=== PATIENT | male | born 1955 | race Caucasian/White ===

== ENCOUNTER 2017-07-17 09:28 | Outpatient (CLI) | payer BC ==
--- NOTE | 2017-07-17 11:10 | RAD ---
EXAM: THREE VIEWS LUMBAR SPINE: COMPARISON: 06/27/16. HISTORY: Lumbar fusion. FINDINGS: There are 5 lumbar-type vertebral bodies. Lumbar spine vertebral body height is maintained. No frac ture. Approximately 2 cm of anterolisthesis of L5 upon S1 in the neutral position. Upon flexion, t here is 2.3 cm anterolisthesis of L5 upon S1. Upon extension, there is 1.8 cm anterolisthesis of L5 upon S1. There are bilateral transpedicular screws at L5 and S1 without perihardware lucency. IMPRESSION: Grade II anterolisthesis of L5 upon S1 upon the neutral position with translational motion upon exten marilin and flexion. POS: [facility]
--- NOTE | 2017-07-17 12:18 | CT ---
CT LUMBAR SPINE WITHOUT CONTRAST: Date: 07/17/17 HISTORY: Lumbar radiculopathy. Low back pain x1 year with a popping sensation. Numbing sensation, mainly on th e left. Previous lumbar surgery. COMPARISON: None. TECHNIQUE: Noncontrast lumbar spine CT is performed in the axial plane. Reformatted images are submitted for int erpretation. FINDINGS: Visualized solid organs are unremarkable. There appears to be fatty infiltration of the visualized he patic parenchyma. No retroperitoneal mass, lymphadenopathy, or hematoma. Symmetric attenuation of the psoas muscles. Five lumbar-type vertebral bodies. Lumbar spine vertebral body height is maintained. No lumbar spine fracture. There are bilateral transpedicular screws at L5 and S1, without perihardware lucency. There is 1.2 cm anterolisthesis of L5 upon S1. There are bilateral pars defects at L5. There is preservation of the transverse processes throughout the lumbar spine. Vacuum disc phenomenon at L3-L4 and L4-L5. T11-T12: No significant posterior disc abnormality. No significant central canal stenosis. Mild facet hypertro phy. Neural foramina patent bilaterally. T12-L1: No posterior disc abnormality. No significant central canal stenosis. Mild bilateral foraminal narrow ing. L1-L2: No significant posterior disc abnormality. No significant central canal stenosis. Mild bilateral fora myesha narrowing. L2-L3: No significant posterior disc abnormality. There is facet hypertrophy. No significant central canal s tenosis. Neural foramina are patent bilaterally. L3-L4: Generalized disc bulge with a central/left subarticular component. At least mild to moderate central canal stenosis. Moderate right and mild left foraminal narrowing. L4-L5: Limited evaluation due to beam attenuation artifact. No high grade central canal stenosis. Mild to mo derate bilateral foraminal narrowing. L5-S1: Limited evaluation due to beam attenuation artifact. No high grade central canal stenosis. Moderate b ilateral foraminal narrowing. IMPRESSION: 1. Grade II anterolisthesis of L5 upon S1. There are associated bilateral pars defects. There is lum bar fusion hardware at L5-S1, without perihardware lucency. 2. No high grade central canal stenosis or high grade foraminal narrowing. Evaluation is limited by technique. Consider myelogram if clinically warranted. POS: [facility]
== END 2017-07-17 09:29 | disposition home or self-care (01) ==
LOC: TBSIIMAG 09:28
PROVIDERS: ATTEND Neurological Surgery
DX: M54.16 Radiculopathy, lumbar region (principal); M43.17 Spondylolisthesis, lumbosacral region; Z98.1 Arthrodesis status
CPT/HCPCS: 72100; 72131

== ENCOUNTER 2018-01-15 10:01 | Outpatient (CLI) | payer BC | END 2018-01-15 10:02 | disposition home or self-care (01) | LOC: CTENTCT 10:01 | PROVIDERS: ATTEND Otolaryngology Plastic Surgery within the Head & Neck | DX: J34.2 Deviated nasal septum (principal) | CPT/HCPCS: 70486 ==

== ENCOUNTER 2019-02-15 09:26 | Outpatient (CLI) | payer BC ==
[2019-02-15 12:44] LABS: #Basophils 0.1 thou/uL (0.0-0.2); #Eosinphils 0.4 thou/uL (0.0-0.7); #Lymphocytes 1.6 thou/uL (1.20-3.40); #Monocytes 0.5 thou/uL (0.11-0.59); #Neutrophils 2.5 thou/uL (1.40-6.50); %Basophils 1.1 % (0.0-1.0); %Eosinophils 7.6 % (0.0-10.0); %Lymphocytes 31.4 % (21.0-51.0); %Monocytes 10.1 % (0.0-10.0); %Neutrophils 49.9 % (42.0-75.0); Hemoglobin 15.4 g/dL (14.0-18.0); Mean Corpuscular HGB CONC 34.9 g/dL (32.0-36.0); Mean Corpuscular Hemoglobin 32.3 pg (27.0-31.0); Mean Corpuscular Volume 92.7 fL (78.0-98.0); Mean Platelet Volume 8.3 fL (7.4-10.4); Platelet Count 162 thou/uL (130-400); RBC Distribution Width 11.3 % (11.5-14.5); Red Blood Cell (RBC) Count 4.76 mill/uL (4.70-6.10)
[2019-02-15 13:02] LABS: Anion Gap 14 mmol/L (10-20); BUN (Urea Nitrogen) 24 mg/dL (8.4-25.7); Calc. Creatinine Clearance 0 mL/min (70-130); Calcium 9.6 mg/dL (7.8-10.44); Carbon Dioxide 27 mmol/L (23-31); Chloride 98 mmol/L (98-107); Estimated GFR-MDRD 76; Glucose 200 mg/dL (80-115); Potassium 3.9 mmol/L (3.5-5.1); Sodium 135 mmol/L (136-145)
--- NOTE | 2019-02-15 15:26 | EKG ---
Test Reason : Blood Pressure : / mmHG Vent. Rate : 064 BPM Atrial Rate : 064 BPM P-R Int : 192 ms QRS Dur : 094 ms QT Int : 396 ms P-R-T Axes : 068 050 068 degrees QTc Int : 408 ms Normal sinus rhythm with sinus arrhythmia Cannot rule out Anterior infarct , age undetermined Abnormal ECG When compared with ECG of 13-MAR-2016 06:56, No significant change was found Confirmed by DR. Breanna KUO ([id number]) on 02/15/2019 3:26:00 PM Referred By: Sanford FIORE Confirmed By:DR. Breanna KUO
== END 2019-02-15 09:27 | disposition home or self-care (01) ==
LOC: LABBT 09:26
PROVIDERS: ATTEND Orthopaedic Surgery
DX: Z01.818 Encounter for other preprocedural examination (principal); M67.442 Ganglion, left hand
CPT/HCPCS: 80048; 85025; 93005; 93010

== ENCOUNTER 2019-02-17 05:33 | Day surgery (SDC) | payer BC ==
[2019-02-15 11:16] VITALS: BMI 35.3
--- NOTE | 2019-02-16 09:00 | HP ---
HISTORY OF PRESENT ILLNESS: The patient is a 63-year-old male with a painful mass over the proximal phalanx of his left middle finger over the past 5 months. He has had no injury. Mass is sensitive to touch and limits the activities such as grasping. PAST MEDICAL HISTORY: The patient is in otherwise good health. He has history of hyperlipidemia and hypertension. He has had previous cervical fusion and previous knee arthroscopy. MEDICATIONS: He takes Zioptan ophthalmic drops, lisinopril. He uses CPAP, p.r.n. Flonase. ALLERGIES: HE HAS NO KNOWN ALLERGIES. FAMILY HISTORY: Otherwise unremarkable. SOCIAL HISTORY: Otherwise unremarkable. REVIEW OF SYSTEMS: Otherwise unremarkable. PHYSICAL EXAMINATION: GENERAL: Reveals a healthy male. HEENT: Unremarkable. NECK: Supple. CHEST: Clear. HEART: Regular rate and rhythm. ABDOMEN: Soft, nontender. RECTAL: Deferred. GENITAL: Deferred. EXTREMITIES: Pertinent findings related to the left hand and left middle finger. There is no swelling. There is a pea-sized tender nodule over the ulnar base of the proximal phalanx on the volar aspect of the middle finger just distal to the MP flexion crease. There is full range of motion. There is negative Tinel sign. Neurovascular exam is intact. There are good pulses. Good capillary refill. IMAGING STUDIES: X-rays of the left middle finger are normal. 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 PLAN: Surgical excision. The nature of the surgery, length of recovery, and potential complications such as infection, loss of motion, incomplete relief, digital nerve injury, recurrence, need for additional treatment, repeat surgery had been discussed in detail. Job ID: [id number] [facility]
[2019-02-17] MEDS ORDERED: Fentanyl 100 MCG/2 ML VIAL ONE (06:02)
[2019-02-17] MEDS ORDERED: Bupivacaine PF 0.5% 30 ML VIAL ONE (06:43)
[2019-02-17] MEDS ORDERED: Dexamethasone 20 MG/5 ML VIAL ONE (12:46)
[2019-02-17] MEDS ORDERED: Ketorolac Tromethamine 30 MG/ML VIAL ONE (12:46)
[2019-02-17] MEDS ORDERED: Lidocaine 1% PF 5 ML VIAL ONE (12:46)
[2019-02-17] MEDS ORDERED: PROPOFOL 200 MG/20 ML VIAL ONE (12:46)
[2019-02-17] MEDS ORDERED: Ondansetron PF 4 MG/2 ML Vial ONE (12:46)
--- NOTE | 2019-02-17 14:35 | OP ---
DATE OF PROCEDURE: 02/17/2019 ANESTHESIA: General. PREOPERATIVE DIAGNOSIS: Ganglion of tendon sheath, left middle finger. POSTOPERATIVE DIAGNOSIS: Ganglion of tendon sheath, left middle finger. PROCEDURE PERFORMED: Excision of ganglion of tendon sheath, left middle finger. DESCRIPTION OF PROCEDURE: After satisfactory anesthesia was induced in supine position, the patient was prepped and draped in routine manner. Left hand was elevated and exsanguinated with an Esmarch bandage and the tourniquet inflated to 250 mmHg. A 1 cm vertical incision was made along the ulnar base of the left middle finger just distal to the proximal to the MP flexion crease. This was carried down through subcutaneous tissues. Bleeding points were controlled with cautery. Care was taken to avoid injury to the neurovascular bundle. Using sharp and blunt dissection, the mass was exposed, appeared to be a typical ganglion coming from the flexor tendon sheath. This was excised in its entirety, peeled off the flexor tendon sheath and specimen sent to Pathology. It appeared to be complete excision. Wound was then thoroughly irrigated and closed with interrupted 3-0 nylon. Metacarpal block was accomplished with 0.5% plain Marcaine 10 mL. A sterile bulky compressive dressing was applied, and the tourniquet was deflated after 19 minutes. The hand promptly pinked up. The patient was awakened, taken to recovery room in stable condition. There were no apparent intraoperative complications. ESTIMATED BLOOD LOSS: Negligible. The patient will be discharged home in satisfactory condition, instructed on ice and elevation, and given written wound care instructions. He was given a prescription for Morrison 5 for pain, 15 tablets. He will be checked in my office in approximately 3 weeks or sooner, if there are any problems prior to that time. Job ID: [id number]
== END 2019-02-17 09:50 | disposition home or self-care (01) ==
LOC: SDC 05:33
PROVIDERS: ATTEND Orthopaedic Surgery
PROC: 0LB80ZZ Excision of Left Hand Tendon, Open Approach (ICD-10-PCS; principal; 2019-02-17)
DX: M67.442 Ganglion, left hand (principal); I10 Essential (primary) hypertension; E78.5 Hyperlipidemia, unspecified; Z79.899 Other long term (current) drug therapy; Z98.1 Arthrodesis status
CPT/HCPCS: 88304; J0690; J1100; J1885; J2001; J2405; J2704; J3010; S0020

== ENCOUNTER 2019-12-08 09:42 | Outpatient (CLI) | payer BC ==
[2019-12-08 10:20] LABS: Estimated GFR-MDRD - POC Greater than 90
--- NOTE | 2019-12-08 13:23 | MRI ---
MRI OF CERVICAL SPINE WITH AND WITHOUT CONTRAST: INDICATION: Cervical radiculopathy. Multiple surgeries. COMPARISON: Comparison is made to MRI cervical spine from 10/20/2015. FINDINGS: Postoperative and degenerative changes of the cervical spine noted. Prominent osteophytes from the c ervical vertebral are seen with large anterior osteophytes at C4-5 and C5-6. Mild anterior wedging o f the C4 and C5 vertebrae similar in appearance to 2016. Postoperative changes at C6-7 with evidence of prior fusion procedure. There are metallic screws seen within these vertebral bodies producing a rtifact. Correlation with a prior plain film from 2016 revealed metallic screws without a plate. In terbody implant was noted at that time. This hardware produces artifact on MRI. At C3, no significant spondylosis. No foraminal stenosis. C3-4: Mild posterior spondylosis effaces the anterior subarachnoid space. No cord impingement or ce ntral canal stenosis. Mild foraminal narrowing. C4-5: Mild disk bulge and spondylosis efface the anterior subarachnoid space. No significant forami nal stenosis. C5-6: Mild posterior spondylosis effaces the anterior subarachnoid space. No significant cord impin gement. No significant foraminal stenosis. C6-7: Postop fusion changes. No encroachment on the thecal sac. The anterior subarachnoid space is generous throughout this level. There is evidence of mild right foraminal stenosis due to hypertrop hic change. C7-T1: No significant abnormality. Cervical cord signal is normal. Incidentally noted on sagittal imaging is diffuse disk bulge at T1 and T2 with prominent foraminal en croachment bilaterally at this level. IMPRESSION: 1. Postoperative and degenerative changes of the cervical spine as described above. No significant central canal stenosis or cord impingement seen within the cervical canal. Mild right foraminal sten osis at C6-7 due to hypertrophic change. 2. There is evidence of bilateral foraminal stenosis at T1-T2 which is incompletely evaluated. Cons ider further evaluation with CT to assess the osseous hypertrophic changes. POS: [facility]
== END 2019-12-08 09:43 | disposition home or self-care (01) ==
LOC: TBSIIMAG 09:42
PROVIDERS: ATTEND Neurological Surgery
DX: M47.22 Other spondylosis with radiculopathy, cervical region (principal); M48.02 Spinal stenosis, cervical region; M48.04 Spinal stenosis, thoracic region; Z98.890 Other specified postprocedural states
CPT/HCPCS: 72156; 82565

== ENCOUNTER 2020-09-26 07:10 | Day surgery (SDC) | payer MEDICARE, OTHER ==
[2020-09-25 13:19] VITALS: BMI 35.9
[~2020-09-26 07:10] MED LIST: EPINEPHrine 0.3 MG in Ophthalmic Irrigation Solution 500 ML IRR SCH
[2020-09-26] MEDS ORDERED: Fentanyl 100 MCG/2 ML VIAL ONE (07:18)
[2020-09-26] MEDS ORDERED: Midazolam HCl 2 mg/2 ml Vial ONE (07:18)
[2020-09-26] MEDS ORDERED: PROPOFOL 20 ML ONE (07:18)
[2020-09-26] MEDS ORDERED: Cyclopentolate 1% Ophth Drops 15 ML BOT ONE (07:21)
[2020-09-26] MEDS ORDERED: Phenylephrine 2.5% Ophth Soln 5 ML BOT ONE (07:21)
[2020-09-26] MEDS ORDERED: Bupivacaine PF 0.75% SDV 10 ML ONE (08:54)
[2020-09-26] MEDS ORDERED: CEFAZOLIN 1 GM VIAL ONE (08:54)
[2020-09-26] MEDS ORDERED: Lidocaine 1% PF 5 ML VIAL ONE (08:54)
[2020-09-26] MEDS ORDERED: Lidocaine 4% PF 5 ML AMP ONE (08:54)
[2020-09-26] MEDS ORDERED: Triamcinolone 40 MG/ML VIAL ONE (08:54)
[2020-09-26] MEDS ORDERED: PROPOFOL 200 MG/20 ML VIAL ONE (08:54)
== END 2020-09-26 10:30 | disposition home or self-care (01) ==
LOC: SDC 07:10
PROVIDERS: ATTEND Ophthalmology Retina Specialist
PROC: 08T53ZZ Resection of Left Vitreous, Percutaneous Approach (ICD-10-PCS; principal; 2020-09-26)
DX: H33.022 Retinal detachment with multiple breaks, left eye (principal); Z79.84 Long term (current) use of oral hypoglycemic drugs; Z79.899 Other long term (current) drug therapy
CPT/HCPCS: 67025; J0171; J0690; J2250; J2704; J3010; J3301; J3490

== ENCOUNTER 2024-05-19 05:48 | Day surgery (SDC) | payer MEDICARE ==
[2024-05-18 10:37] VITALS: BMI 35.9
[2024-05-19] MEDS ORDERED: Thrombin 5000 UNITS/5 ML VIAL ONE (06:08)
[2024-05-19] MEDS ORDERED: EPINEPHrine 1 MG/ML VIAL ONE (06:08)
[2024-05-19] MEDS ORDERED: Bupivacaine PF 0.5% 30 ML VIAL ONE (06:08)
[2024-05-19] MEDS ORDERED: fentaNYL PF 100 MCG/2 ML SYRINGE ONE ×2 (06:30→07:39)
[2024-05-19] MEDS ORDERED: Lidocaine 1% PF 5 ML VIAL ONE (06:31)
[2024-05-19] MEDS ORDERED: PROPOFOL 20 ML ONE (06:31)
[2024-05-19] MEDS ORDERED: Rocuronium Bromide 10 MG/ML (10ML VIAL) ONE (06:31)
[2024-05-19] MEDS ORDERED: CEFAZOLIN 2 GM VIAL ONE ×2 (06:50→10:39)
[2024-05-19 06:59] LABS: Chloride 106 mmol/L (98-107); Potassium 4.1 mmol/L (3.5-5.1); Sodium 139 mmol/L (136-145)
[2024-05-19 07:00] LABS: Calcium 9.2 mg/dL (7.8-10.44); Glucose 96 mg/dL (80-115)
[2024-05-19 07:02] LABS: Anion Gap 14 mmol/L (10-20); Carbon Dioxide 23 mmol/L (23-31)
[2024-05-19 07:13] LABS: BUN (Urea Nitrogen) 25 mg/dL (8.4-25.7); Calc. Creatinine Clearance 94 mL/min (70-130); Estimated GFR 57
[2024-05-19] MEDS ORDERED: Sterile Water 10 ML ONE (07:17)
[2024-05-19] MEDS ORDERED: Dexamethasone 20 MG/5 ML VIAL ONE (07:39)
[2024-05-19] MEDS ORDERED: Dexmedetomidine 200 MCG/2 ML VIAL ONE (07:41)
[2024-05-19] MEDS ORDERED: Ondansetron PF 4 MG/2 ML Vial ONE (08:11)
[2024-05-19] MEDS ORDERED: Morphine Sulfate 2 MG/ML SYRINGE SLOW IVP PRN (08:13)
[2024-05-19] MEDS ORDERED: Promethazine HCl 25 MG/ML VIAL IM PRN (08:13)
[2024-05-19] MEDS ORDERED: Ondansetron HCl/PF 4 MG/2 ML Vial IVP PRN (08:13)
[2024-05-19] MEDS ORDERED: PACU-Morphine 4MG/ML VIAL SLOW IVP PRN (08:13)
[2024-05-19] MEDS ORDERED: HYDROmorphone 2 MG/ML VIAL SLOW IVP PRN (08:13)
[2024-05-19] MEDS ORDERED: SUGAMMADEX SODIUM 200 MG/2 ML VIAL ONE (08:16)
[2024-05-19] MEDS ORDERED: Labetalol HCl 100 MG/20 ML VIAL ONE (08:33)
[2024-05-19] MEDS ORDERED: Tamsulosin HCl 0.4 MG CAP ONE (08:48)
[2024-05-19] MEDS ORDERED: HYDROmorphone 0.5 MG/0.5 ML SYRINGE ONE (08:48)
[2024-05-19] MEDS ORDERED: Sodium Chloride 0.9% 100 ML ONE (10:39)
== END 2024-05-19 11:31 | disposition home or self-care (01) ==
LOC: SDC 05:48
PROVIDERS: ATTEND Neurological Surgery
PROC: 00NY0ZZ Release Lumbar Spinal Cord, Open Approach (ICD-10-PCS; principal; 2024-05-19)
DX: M48.062 Spinal stenosis, lumbar region with neurogenic claudication (principal); M54.16 Radiculopathy, lumbar region; E11.9 Type 2 diabetes mellitus without complications; I10 Essential (primary) hypertension; H26.9 Unspecified cataract; Z87.891 Personal history of nicotine dependence
CPT/HCPCS: 63047; 63048; 80048; J0171; J0665; J1100; J2704; 36415; 93005; 93010; J2405